=== PATIENT | male | born 1965 | race African-American/Black ===

== ENCOUNTER 2018-09-15 18:44 | Emergency (ER) | payer SELFPAY ==
[~2018-09-15] VITALS: Ht 185.4 cm; Wt 83.9 kg
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
[2018-09-15 20:31] VITALS: BP 133/84
== END 2018-09-15 22:55 | disposition home or self-care (01) ==
LOC: ER 18:47
DX: S16.1XXA Strain of muscle, fascia and tendon at neck level, initial encounter (principal); S39.012A Strain of muscle, fascia and tendon of lower back, initial encounter; E11.9 Type 2 diabetes mellitus without complications; V49.49XA Driver injured in collision with other motor vehicles in traffic accident, initial encounter; Y93.89 Activity, other specified; Y92.413 State road as the place of occurrence of the external cause; Y99.8 Other external cause status
CPT/HCPCS: 72050; 72110; 99283; A4606

== ENCOUNTER 2019-10-28 13:35 | Emergency (ER) | payer SELFPAY ==
[~2019-10-28] VITALS: Ht 185.4 cm; Wt 81.6 kg
--- NOTE | 2019-10-28 14:00 | NUR ---
ON AND OFF CHEST PAIN X 3 DAYS WORST AND CONSTANT TODAY SINCE AM. PATIENT A/OX4, BREATHING EVEN AND UNLABORED, NO SOB NOTED. ATTACHED TO THE CHILD [employer]SE [employer].
--- NOTE | 2019-10-28 14:05 | NUR ---
iv line established, blood drawn and sent to lab.
[2019-10-28 14:09] LABS: BASOPHILS % (AUTO) 0.5 % (0.0-2.0); EOSINOPHILS % (AUTO) 2.3 % (0.0-6.0); HEMATOCRIT 48 % (39-51); HEMOGLOBIN 16.3 g/dL (13.5-17.5); LYMPHOCYTES # (AUTO) 1.2 /CMM (0.8-4.8); LYMPHOCYTES % (AUTO) 19.7 % (20.0-44.0); MEAN CORPUSCULAR HGB CONC 34 g/dl (31.0-36.0); MEAN CORPUSCULAR VOLUME 90 fL (80-96); MONOCYTES # (AUTO) 0.6 /CMM (0.1-1.30); MONOCYTES % (AUTO) 10.2 % (2.0-12.0); NEUTROPHILS # (AUTO) 4.1 /CMM (1.8-8.9); NEUTROPHILS % (AUTO) 67.3 % (43.0-81.0); PLATELET COUNT (AUTO) 270 /CMM (150-450); RED BLOOD CELL COUNT(AUTO) 5.36 MIL/uL (4.5-6.0); WHITE BLOOD COUNT (AUTO) 6.2 K/uL (4.3-11.0)
[2019-10-28 14:15] LABS: CALCIUM, SERUM 9.1 mg/dL (8.5-10.1); CARBON DIOXIDE 28 mmol/L (21-32); CHLORIDE 101 mmol/L (98-107); CREATININE 1.1 mg/dL (0.6-1.3); GLUCOSE 109 mg/dL (74-106); POTASSIUM 3.8 mmol/L (3.5-5.1); SODIUM SERUM 138 mmol/L (136-145); UREA NITROGEN, BLOOD 12 mg/dL (7-18)
[2019-10-28] MEDS ORDERED: ONDANSETRON HCL/PF 4 MG/2 ML VIAL ONE (14:18)
[2019-10-28] MEDS ORDERED: MORPHINE SULFATE INJ 4 MG/ML DISP.SYRIN ONE (14:19)
[2019-10-28] MEDS ORDERED: ASPIRIN 81 MG TAB.CHEW ONE (14:19)
[2019-10-28] MEDS ORDERED: MORPHINE SULFATE INJ 2 MG/ML DISP.SYRIN IV ONE (14:30)
[2019-10-28] MEDS ORDERED: ASPIRIN 81 MG TAB.CHEW PO ONE (14:30)
[2019-10-28] MEDS ORDERED: ONDANSETRON HCL/PF 4 MG/2 ML VIAL IVP ONE (14:30)
--- NOTE | 2019-10-28 17:13 | NUR ---
REPEAT EKG DONE. PATIENT A/OX4, BREATHING EVEN AND UNLABORED, NO SOB NOTED. NEEDS ATTENDED. KEPT COMFORTABLE.
--- NOTE | 2019-10-28 17:40 | NUR ---
PATIENT AMBULATORY WITH STEADY GAIT. DENIES PAIN, NO DISTRESS NOTED. IV removed. Catheter intact and site benign. Pressure and 4x4 applied to site. No bleeding noted.Patient discharged to home in stable condition. Written and verbal after care instructions given. Patient verbalizes understanding of instruction.
[2019-10-28 17:41] VITALS: BP 141/87
== END 2019-10-28 17:41 | disposition home or self-care (01) ==
LOC: ER 13:35
DX: R07.89 Other chest pain (principal); E11.9 Type 2 diabetes mellitus without complications
CPT/HCPCS: 36415; 71045; 80048; 84484 ×2; 85025; 93005 ×3; 96374; 96375; 99285; J2270; J2405

== ENCOUNTER 2019-11-17 02:34 | Inpatient (IN) | payer MEDICAID ==
[~2019-11-17] VITALS: Ht 185.4 cm; Wt 83.9 kg
--- NOTE | 2019-11-17 03:01 | NUR ---
PT AAOX4. BIBS FOR C/O ON AND OFF MID STERNAL CHEST PAIN THAT IS 5/10 AND L ARM NUMBNESS X 1 WK. NO ACUTE DISTRESS NOTED. VSS. AWAITING MD FOR EVAL. PT PLACED ON MONITOR AND PULSE OX.
[2019-11-17 03:12] LABS: BASOPHILS % (AUTO) 0.7 % (0.0-2.0); EOSINOPHILS % (AUTO) 3.8 % (0.0-6.0); HEMATOCRIT 44 % (39-51); HEMOGLOBIN 14.6 g/dL (13.5-17.5); LYMPHOCYTES # (AUTO) 1.3 /CMM (0.8-4.8); LYMPHOCYTES % (AUTO) 22.2 % (20.0-44.0); MEAN CORPUSCULAR HGB CONC 33 g/dl (31.0-36.0); MEAN CORPUSCULAR VOLUME 90 fL (80-96); MONOCYTES # (AUTO) 0.6 /CMM (0.1-1.30); MONOCYTES % (AUTO) 10.8 % (2.0-12.0); NEUTROPHILS # (AUTO) 3.7 /CMM (1.8-8.9); NEUTROPHILS % (AUTO) 62.5 % (43.0-81.0); PLATELET COUNT (AUTO) 283 /CMM (150-450); RED BLOOD CELL COUNT(AUTO) 4.86 MIL/uL (4.5-6.0); WHITE BLOOD COUNT (AUTO) 5.9 K/uL (4.3-11.0)
[2019-11-17 03:24] LABS: CALCIUM, SERUM 8.2 mg/dL (8.5-10.1); CARBON DIOXIDE 30 mmol/L (21-32); CHLORIDE 104 mmol/L (98-107); CREATININE 1.1 mg/dL (0.6-1.3); GLUCOSE 123 mg/dL (74-106); POTASSIUM 3.7 mmol/L (3.5-5.1); SODIUM SERUM 137 mmol/L (136-145); UREA NITROGEN, BLOOD 13 mg/dL (7-18)
[2019-11-17 03:30] LABS: ALANINE AMINOTRANSFERASE 30 U/L (12-78); ALBUMIN 3.5 g/dL (3.4-5.0); ALKALINE PHOSPHATASE 58 U/L (46-116); ASPARTATE AMINOTRANSFERASE 20 U/L (15-37); BILIRUBIN,DIRECT 0.2 mg/dL (0.0-0.2); BILIRUBIN,TOTAL 0.6 mg/dL (0.2-1.0)
--- NOTE | 2019-11-17 05:27 | NUR ---
Patient is resting comfortably in bed. Easily aroused. VSS.
[2019-11-17] MEDS ORDERED: ZOLPIDEM TARTRATE 5 MG TABLET PO PRN (06:00)
[2019-11-17] MEDS ORDERED: HYDROCODONE/APAP 5/325MG 1 EACH TABLET PO PRN (06:00)
[2019-11-17] MEDS ORDERED: MAGNESIUM HYDROXIDE 30 ML UDC PO PRN (06:00)
[2019-11-17] MEDS ORDERED: ONDANSETRON HCL/PF 4 MG/2 ML VIAL IVP PRN (06:00)
[2019-11-17] MEDS ORDERED: Z GUARD REMEDY 2 OZ OINT TP PRN (06:00)
[2019-11-17] MEDS ORDERED: ACETAMINOPHEN 325 MG TABLET PO PRN (06:00)
--- NOTE | 2019-11-17 06:33 | NUR ---
REPORT GIVEN TO ELIZABETH HAYWARD FOR AMBER
--- NOTE | 2019-11-17 06:49 | NUR ---
RN NOTES Received patient from ER accompanied by 2 ER staff via [facility]. Admitted to tele [id number]. Transferred to bed comfortably, noted ambulatory with steady gait. Patient denies any skin problems at this time. No s/sx of discomfort noted. On RA, no SOB/respiratory distress noted. On tele monitor with NSR noted. Kept on bed clean, dry and comfortable. On fall and aspiration precautions. Endorsed.
[2019-11-17 07:21] LABS: CHOLESTEROL 173 mg/dL (<200); HDL CHOLESTEROL 35 mg/dL (40-60); LDL 119 mg/dL (0-99); TRIGLYCERIDES 97 mg/dL (30-150)
--- NOTE | 2019-11-17 07:23 | NUR ---
rn opening notes Patient received on room air, no sob noted, a/o x4 at this time. BRP. RAC 18. Bed at the lowest setting, call light within reach, side rails up x2.
[2019-11-17] MEDS ORDERED: ASPIRIN 81 MG TAB.CHEW PO SCH (09:00)
[2019-11-17] MEDS ORDERED: IV NS 0.9% 250 ML IV ONE (09:58)
[2019-11-17] MEDS ORDERED: IOHEXOL-350 100 ML VIAL IV ONE (09:58)
[2019-11-17] MEDS ORDERED: METOPROLOL TARTRATE INJ 5 MG/5 ML AMPUL ONE ×4 (10:09→11:19)
[2019-11-17] MEDS: METOPROLOL TARTRATE INJ 5 MG/5 ML AMPUL IVP PRN ×9 (10:22→11:05)
[2019-11-17] MEDS ORDERED: NITROGLYCERIN 4.9 GM SPRAY SL PRN (10:30)
[2019-11-17] MEDS ORDERED: IV NS 0.9% 500 ML IV PRN (10:30)
[2019-11-17] MEDS ORDERED: NITROGLYCERIN 4.9 GM SPRAY ONE (11:20)
[2019-11-17 12:00] VITALS: BP 134/78
[2019-11-17] MEDS ORDERED: METOPROLOL TARTRATE 50 MG TABLET PO SCH (12:00)
[2019-11-17 15:45] VITALS: BP 125/78
[2019-11-17] MEDS ORDERED: ASPI-1169 PO (16:30)
[2019-11-17] MEDS ORDERED: ATOR10TA PO (16:30)
[2019-11-17] MEDS ORDERED: METO50TA16 PO (16:30)
--- NOTE | 2019-11-17 17:01 | NUR ---
rn notes patient discharged at this time. no sob noted, vital signs normal and patient denies chest pain or discomfort. No pictures needed to be taken. Patient is not missing any belonging. He has his cellphone and other valuables with him. No further question with the discharge instructions. IV line removed, patient tag removed. Patient drove here and is using his car to drive back home.
[2019-11-17] MEDS ORDERED: ATORVASTATIN 10 MG TABLET PO SCH (22:00)
== END 2019-11-17 17:02 | disposition home or self-care (01) | DRG 203 ==
LOC: ER 02:35 → TELE 05:51
PROVIDERS: ADMIT Student in an Organized Health Care Education/Training Program; ATTEND Student in an Organized Health Care Education/Training Program
DX: R07.89 Other chest pain (principal); E11.9 Type 2 diabetes mellitus without complications
CPT/HCPCS: 36415; 71045-TC; 75574; 80048-TC; 80061-TC; 80076-TC; 84484-TC; 85025-TC; 93307-TC; G0378; J3490; J7050; Q9967

== ENCOUNTER 2022-09-03 09:09 | Emergency (ER) | payer MEDICAID ==
[~2022-09-03] VITALS: Ht 182.9 cm; Wt 82.6 kg
[~2022-09-03 09:09] MED LIST: ASPI-1169 PO; ATOR10TA PO; METO50TA16 PO
--- NOTE | 2022-09-03 09:30 | NUR ---
RECEIVED PT WALKING IN C/O CHEST PAIN FOR 3 DAYS
[2022-09-03 10:17] LABS: BASOPHILS # (AUTO) 0.1 K/uL (0.0-0.2); BASOPHILS % (AUTO) 0.8 % (0.0-2.0); CALCIUM, SERUM 8.5 mg/dL (8.5-10.1); CARBON DIOXIDE 23 mmol/L (21-32); CHLORIDE 104 mmol/L (98-107); CREATININE 1.1 mg/dL (0.6-1.3); EOSINOPHILS % (AUTO) 4.2 % (0.0-6.0); GLUCOSE 130 mg/dL (74-106); HEMATOCRIT 46 % (39-51); LYMPHOCYTES % (AUTO) 15.3 % (20.0-44.0); MEAN CORPUSCULAR HGB CONC 33 g/dl (31.0-36.0); MEAN CORPUSCULAR VOLUME 91 fL (80-96); MONOCYTES # (AUTO) 0.6 K/uL (0.1-1.30); MONOCYTES % (AUTO) 8.8 % (2.0-12.0); NEUTROPHILS # (AUTO) 4.8 K/uL (1.8-8.9); NEUTROPHILS % (AUTO) 70.9 % (43.0-81.0); PLATELET COUNT (AUTO) 338 K/uL (150-450); POTASSIUM 4.4 mmol/L (3.5-5.1); RED BLOOD CELL COUNT(AUTO) 5.05 MIL/uL (4.5-6.0); SODIUM SERUM 135 mmol/L (136-145); UREA NITROGEN, BLOOD 15 mg/dL (7-18); WHITE BLOOD COUNT (AUTO) 6.7 K/uL (4.3-11.0)
[2022-09-03] MEDS ORDERED: ALBU8.5H8 INH (10:48)
--- NOTE | 2022-09-03 11:11 | NUR ---
Patient discharged to home in stable condition. Written and verbal after care instructions given. Patient verbalizes understanding of instruction.
[2022-09-03 11:13] VITALS: BP 125/79
== END 2022-09-03 11:09 | disposition home or self-care (01) ==
LOC: ER 09:15
DX: U07.1 COVID-19 (principal); R06.00 Dyspnea, unspecified; E11.9 Type 2 diabetes mellitus without complications; Z60.2 Problems related to living alone; Z79.899 Other long term (current) drug therapy
CPT/HCPCS: 36415; 71045-TC; 80048-TC; 84484-TC; 85025-TC

== ENCOUNTER 2023-03-02 21:33 | Emergency (ER) | payer MEDICAID ==
[~2023-03-02] VITALS: Ht 188 cm; Wt 79.4 kg
[~2023-03-02 21:33] MED LIST changes: +ALBU8.5H8 INH
[2023-03-02 21:52] VITALS: TEMP 98.2
[2023-03-02] MEDS ORDERED: NABU-141 PO (21:54)
[2023-03-02] MEDS ORDERED: KETOROLAC TROMETHAMINE INJ 60 MG/2 ML VIAL IM ONE ×2 (21:55→22:00)
[2023-03-03] MEDS ORDERED: HYDROCODONE/APAP 5/325MG TABLET PO ONE
[2023-03-03] MEDS ORDERED: HYDROCODONE/APAP 5/325MG TABLET ONE (00:08)
[2023-03-03 00:50] VITALS: BP 115/75; O2SAT 97
== END 2023-03-03 00:50 | disposition home or self-care (01) ==
LOC: ER 21:40
DX: S16.1XXA Strain of muscle, fascia and tendon at neck level, initial encounter (principal); S46.912A Strain of unspecified muscle, fascia and tendon at shoulder and upper arm level, left arm, initial encounter; E11.9 Type 2 diabetes mellitus without complications; Z60.2 Problems related to living alone; V89.2XXA Person injured in unspecified motor-vehicle accident, traffic, initial encounter; Y93.89 Activity, other specified; Y92.89 Other specified places as the place of occurrence of the external cause; Y99.8 Other external cause status
CPT/HCPCS: 99284; 96372; 72050; 73030; J1885

== ENCOUNTER 2025-03-11 11:25 | Emergency (ER) | payer OTHER ==
[~2025-03-11] VITALS: Ht 188 cm; Wt 87.1 kg
[~2025-03-11 11:25] MED LIST changes: +NABU-141 PO
[2025-03-11 11:37] VITALS: BP 119/69; TEMP 98.1
[2025-03-11] MEDS ORDERED: DIAZ5TAB PO (11:47)
[2025-03-11] MEDS ORDERED: NAPR-1164 PO (11:47)
[2025-03-11] MEDS ORDERED: KETOROLAC TROMETHAMINE 15 MG/ML VIAL ONE (11:55)
[2025-03-11] MEDS: KETOROLAC TROMETHAMINE 15 MG/ML VIAL IM ONE (12:00)
[2025-03-11 12:01] VITALS: O2SAT 99
== END 2025-03-11 12:03 | disposition home or self-care (01) ==
LOC: ER 11:44
DX: M62.838 Other muscle spasm (principal); M50.90 Cervical disc disorder, unspecified, unspecified cervical region; E11.9 Type 2 diabetes mellitus without complications; Z79.82 Long term (current) use of aspirin; Z60.2 Problems related to living alone; Z79.899 Other long term (current) drug therapy
CPT/HCPCS: 99283; 96372; J1885